=== PATIENT | male | born 1980 | race Two or more races ===

== ENCOUNTER 2021-04-15 11:56 | Inpatient (IN) | payer SELFPAY ==
[~2021-04-15] VITALS: Ht 182.9 cm; Wt 163.0 kg
[2021-04-15] MEDS ORDERED: FUROSEMIDE 40 MG/4 ML VIAL IV ONE (12:30)
[2021-04-15 12:41] LABS: Basophils # (auto) 0.1 10 ^3/uL (0-0.2); Eosinophils # (auto) 0.1 10 ^3/uL (0-0.8); Eosinophils % (auto) 1.6 % (0.0-7.0); Hematocrit 45.6 % (41.0-53.0); Hemoglobin 14.6 g/dL (13.5-17.5); Lymphocytes # (auto) 1.8 10 ^3/uL (0.4-5.4); Lymphocytes % (auto) 21.4 % (10.0-50.0); Mean Corpuscular Hemoglobin 27.1 pg (28.0-32.0); Mean Corpuscular Volume 84.9 fL (80.0-100.0); Monocytes # (auto) 0.8 10 ^3/uL (0-1.3); Monocytes % (auto) 9.6 % (0.0-12.0); Neutrophils # (auto) 5.5 10 ^3/uL (1.6-8.6); Neutrophils % (auto) 66.4 % (37.0-80.0); Nucleated Red Blood Cells % 0.1 %; Red Blood Cells 5.38 10^6/uL (4.5-5.90); Red Cell Distribution Width 15.9 % (11.8-14.3); White Blood Cell 8.3 10^3/uL (4.4-10.8)
[2021-04-15] MEDS ORDERED: ENALAPRILAT 1.25 MG/ML-1ML VIAL IV ONE ×2 (12:55→13:00)
[2021-04-15 12:59] LABS: Albumin 3.2 g/dL (3.4-5.0); Calcium 8.3 mg/dL (8.5-10.1); Magnesium 2.6 mg/dL (1.6-2.6); Potassium 4.6 mmol/L (3.5-5.1)
[2021-04-15] MEDS ORDERED: LABETALOL HCL 5 MG/ML 4ML SYRINGE IV ONE (13:00)
[2021-04-15 13:05] LABS: BUN/Creatinine Ratio 12.7; Bilirubin, Total 1.3 mg/dL (0.2-1.0)
[2021-04-15] MEDS ORDERED: ASPirin 81 mg TAB PO ONE (13:15)
[2021-04-15 14:06] LABS: Urine Bacteria NONE SEEN /hpf (None Seen); Urine Blood Negative /uL (Negative); Urine Hyaline Cast FEW /lpf (0 - 2); Urine Mucus FEW (None Seen); Urine WBC 7 /hpf (0 - 3)
[2021-04-15] MEDS ORDERED: NITROGLYCERIN 0.4 MG SL TAB SL PRN (16:15)
[2021-04-15] MEDS ORDERED: MORPHINE SULFATE INJECTION 2 MG/ML SYRG IV PRN ×2 (16:15→16:30)
[2021-04-15] MEDS ORDERED: ACETAMINOPHEN 500 MG TAB PO PRN (16:30)
[2021-04-15] MEDS ORDERED: DOCUSATE CALCIUM 240 MG CAP PO PRN (16:30)
[2021-04-15] MEDS ORDERED: ONDANSETRON HCL 4 MG/2 ML VIAL IV PRN (16:30)
[2021-04-15] MEDS ORDERED: LORazepam 0.5 MG TAB PO PRN (16:30)
[2021-04-15] MEDS ORDERED: METOPROLOL TARTRATE 1MG/1ML-5ML VIAL IV PRN (16:30)
[2021-04-15 18:38] VITALS: BP 151/109
[2021-04-15 19:30] VITALS: BP 160/110
[2021-04-15 23:04] VITALS: BP 164/109
[2021-04-16 05:00] VITALS: BP 179/127
[2021-04-16] MEDS: PIPERACILLIN-TAZOB 3.375GM 100 ML IV SCH ×2 (06:00)
[2021-04-16] MEDS ORDERED: hydrALAZINE HCL 25 MG TAB PO ONE (06:15)
[2021-04-16 09:00] VITALS: BP 164/116
[2021-04-16] MEDS: PANTOPRAZOLE 40 MG TAB PO SCH ×2 (10:04→10:15)
[2021-04-16] MEDS: ENOXAPARIN SOD 40 MG/0.4 ML SYRINGE SC SCH ×2 (10:04→10:15)
[2021-04-16] MEDS ORDERED: hydrALAZINE HCL 25 MG TAB PO PRN (15:00)
== END 2021-04-16 10:05 | disposition left against medical advice (07) | DRG 292 ==
LOC: EDSEX 11:56 → ER 11:56 → TELE 16:03 → TELE-CENTR 18:23
PROVIDERS: ADMIT Family Medicine; ATTEND Family Medicine
DX: I11.0 Hypertensive heart disease with heart failure (principal); E44.1 Mild protein-calorie malnutrition; N39.0 Urinary tract infection, site not specified; Z68.42 Body mass index [BMI] 45.0-49.9, adult; I50.43 Acute on chronic combined systolic (congestive) and diastolic (congestive) heart failure; E66.01 Morbid (severe) obesity due to excess calories; F12.90 Cannabis use, unspecified, uncomplicated; F41.9 Anxiety disorder, unspecified; I16.0 Hypertensive urgency; L98.9 Disorder of the skin and subcutaneous tissue, unspecified; Z87.891 Personal history of nicotine dependence; Z20.822 Contact with and (suspected) exposure to COVID-19; Z53.29 Procedure and treatment not carried out because of patient's decision for other reasons
CPT/HCPCS: 36415; 71045; 80053; 81001; 82962; 83735; 83880; 84484; 85025; 85049; 87077; 87086; 87186; 87205; 87426; 93005; 93970; 96374; 96375; G0378; J2543; J3490